=== PATIENT | male | born 2000 | race African-American/Black ===

== ENCOUNTER 2018-10-10 22:00 | Emergency (ER) | payer OTHER ==
[~2018-10-10] VITALS: Ht 182.9 cm; Wt 81.8 kg
[~2018-10-10 22:00] MED LIST: CRUTCHES MC; NORCO 325 MG-51 TAB PO
[2018-10-10 22:35] LABS: BASO # 0.1 (0.0-0.2); BASO % 1.7 % (0.0-2.0); EOS # 0.1 (0.0-0.7); EOS % 1.5 % (0-4.0); GRAN # 1.9 (1.4-6.5); GRAN % 40.2 % (42.2-75.2); HEMATOCRIT 44.9 % (36.0-47.0); HEMOGLOBIN 14.7 g/dl (12.5-16.1); LYMPH # 2.2 (1.2-3.4); LYMPH % 46.3 % (20.0-51.0); MEAN CELL VOLUME 82 fl (80.0-95.0); MEAN CORPUSCULAR HEMOGLOBIN 27 pg (26.0-32.0); MEAN CORPUSCULAR HGB CONC 33 g/dl (33.0-37.0); MEAN PLATELET VOLUME 9.2 fl (7.4-10.4); MONO # 0.5 (0.1-0.6); MONO % 10.1 % (1.7-9.3); PLATELET COUNT 247 K/mm3 (130-400); RED BLOOD COUNT 5.48 M/mm3 (4.20-5.60); REDCELL DISTRIBUTION WIDTH-CV 14.2 % (11.5-14.5)
[2018-10-10 22:50] LABS: ALANINE AMINOTRANSFERASE 8 U/L (21-72); ALBUMIN 4.8 gm/dL (3.5-5.0); ALCOHOL(ethanol),MEDICAL 258 mg/dL; ALKALINE PHOSPHATASE 91 U/L (50-136); ANION GAP 17 mmol/L (7-16); AST,SGOT 27 U/L (15-37); BILIRUBIN,TOTAL 0.3 mg/dL (0.0-1.0); BLOOD UREA NITROGEN 10 mg/dL (9-20); CALCIUM 9.6 mg/dL (8.4-10.2); CARBON DIOXIDE 21 mmol/L (22-30); CHLORIDE 109 mmol/L (98-107); CREATININE, serum 0.79 (0.66-1.25); GLUCOSE 73 mg/dL (74-106); POTASSIUM 4.2 mmol/L (3.4-5.0); SODIUM 146 mmol/L (137-145); TOTAL PROTEIN 8.2 gm/dL (6.4-8.2)
[2018-10-10 22:55] LABS: ACETAMINOPHEN < 10 ug/mL (10-30); SALICYLATE < 1.0 mg/dL
[2018-10-11 02:30] LABS: COLLECTION METHOD CLEAN CATCH
[2018-10-11 02:35] LABS: MUCOUS Present /lpf; PH 7 (5-8); SQUAMOUS EPITHELIAL None Seen /hpf; URINE APPEARANCE Clear; URINE BACTERIA None Seen /hpf; URINE BILIRUBIN Negative (NEGATIVE); URINE BLOOD Negative (NEGATIVE); URINE COLOR Straw; URINE GLUCOSE Negative (NEGATIVE); URINE KETONE Negative (NEGATIVE); URINE LEUKOCYTE ESTERASE Negative (NEGATIVE); URINE NITRATE Negative (NEGATIVE); URINE PROTEIN(semi-quant) Negative (NEGATIVE); URINE RBC 0-2 /hpf; URINE UROBILINOGEN Negative (NEGATIVE)
[2018-10-11 02:57] LABS: TRICYCLIC ANTIDEPRESS URINE NEGATIVE
[2018-10-13 11:00] VITALS: BP 118/69; PULSE 89; TEMP 98.4
== END 2018-10-13 11:35 ==
LOC: COL.ER 22:00 → EDBD 22:01 → COL.ER 10-13 11:35
PROVIDERS: Emergency Medicine
DX: T50.5X1A Poisoning by appetite depressants, accidental (unintentional), initial encounter (principal); T51.91XA Toxic effect of unspecified alcohol, accidental (unintentional), initial encounter; R45.851 Suicidal ideations; Y90.4 Blood alcohol level of 80-99 mg/100 ml
CPT/HCPCS: J1630; J2060; J2405; J7030

== ENCOUNTER 2019-11-27 09:59 | Emergency (ER) | payer OTHER ==
[~2019-11-27] VITALS: Ht 180.3 cm; Wt 72.7 kg
[2019-11-27 10:05] VITALS: BP 99/70; TEMP 98.2
[2019-11-27 11:24] VITALS: PULSE 82
== END 2019-11-27 11:23 | disposition home or self-care (01) ==
LOC: COL.ER 09:59
DX: Z20.828 Contact with and (suspected) exposure to other viral communicable diseases (principal); Z88.0 Allergy status to penicillin